=== PATIENT | female | born 1980 | race Caucasian/White ===

== ENCOUNTER 2019-01-09 13:24 | Emergency (ER) | payer OTHER ==
[~2019-01-09] VITALS: Ht 162.6 cm; Wt 69.4 kg
[~2019-01-09 13:24] MED LIST: AZIT250T PO; NAPR-985 PO
[2019-01-09 13:38] VITALS: Ht 162.6 cm; Wt 69.4 kg
[2019-01-09 17:38] VITALS: BP 112/67; PULSE 78; RESP 20
== END 2019-01-09 17:39 | disposition home or self-care (01) ==
LOC: FTE 13:24
DX: K76.89 Other specified diseases of liver (principal); R07.9 Chest pain, unspecified
CPT/HCPCS: 36415; 71045; 71275; 80053; 84703; 85025; 85378; 94664; 99285; Q9967